=== PATIENT | male | born 1970 | race African-American/Black ===

== ENCOUNTER → 2017-12-12 | Outpatient (CLI) | payer OTHER | END | disposition home or self-care (01) | LOC: US 13:15 | DX: N43.3 Hydrocele, unspecified (principal) | CPT/HCPCS: 76870 ==

== ENCOUNTER 2018-01-09 11:29 | Day surgery (SDC) | payer OTHER ==
[~2018-01-09 11:29] MED LIST: HYDROmorphone 2 MG/ML VIAL IV; LIDOCAINE 1% PF 2 ML VIAL. ID; ONDANSETRON PF 4 MG/2 ML VIAL. IV; PROCHLORPERAZINE 10 MG/2 ML VIAL. IV; fentaNYL PF VIAL 100 MCG/2 ML VIAL IV
[2018-01-09] MEDS ORDERED: fentaNYL PF VIAL 100 MCG/2 ML VIAL ×2 (12:05→13:35)
[2018-01-09] MEDS ORDERED: MIDAZOLAM HCL/PF 2 MG/2 ML VIAL. (12:05)
[2018-01-09] MEDS ORDERED: PROPOFOL 20 ML IV (12:06)
[2018-01-09] MEDS ORDERED: ONDANSETRON PF 4 MG/2 ML VIAL. (12:06)
[2018-01-09] MEDS ORDERED: KETOROLAC 30 MG/ML INJ FOR OR. INJ (12:06)
[2018-01-09] MEDS ORDERED: SEVOFLURANE 61 TO 120 MINUTES. IH (12:06)
[2018-01-09] MEDS ORDERED: DEXAMETHASONE SOD PHOS 20 MG/5 ML VIAL. (12:06)
[2018-01-09] MEDS: IV RINGERS,LACTATED 1000ML 1,000 ML IV (12:17)
[2018-01-09] MEDS ORDERED: FAMOTIDINE 20 MG/2 ML VIAL (13:39)
[2018-01-09] MEDS: BUPIVACAINE MPF 0.25% 30 ML VIAL. (13:39)
[2018-01-09] MEDS: fentaNYL PF VIAL 100 MCG/2 ML VIAL IV ×2 (15:48→15:55)
[2018-01-09] MEDS: MORPHINE SULFATE 4 MG/ML DISP.SYRIN. IV ×3 (16:05→16:28)
[2018-01-09] MEDS: oxyCODONE/APAP 5/325 1 TAB TABLET PO (16:36)
== END 2018-01-09 17:20 | disposition home or self-care (01) ==
LOC: SURG 11:29
DX: N43.3 Hydrocele, unspecified (principal); F41.9 Anxiety disorder, unspecified; R00.2 Palpitations; Z79.899 Other long term (current) drug therapy
CPT/HCPCS: 54640; C1769; J1100; J1885; J2250; J2270; J2405; J2704; J3010; J3490; J7120; S0028

== ENCOUNTER → 2018-01-23 | Outpatient (CLI) | payer OTHER | END | disposition home or self-care (01) | LOC: RAD 12:50 | DX: N43.3 Hydrocele, unspecified (principal); R23.4 Changes in skin texture; Z98.890 Other specified postprocedural states | CPT/HCPCS: 76870 ==

== ENCOUNTER 2019-11-28 10:00 | Emergency (ER) | payer OTHER ==
[~2019-11-28] VITALS: Ht 203.2 cm; Wt 154.5 kg
[~2019-11-28 10:00] MED LIST changes: +DOCU-109 PO; +HYDR-2145 PO; +HYDR-2761 PO; -HYDROmorphone 2 MG/ML VIAL IV; +LEVO750T31 PO; -LIDOCAINE 1% PF 2 ML VIAL. ID; +LISI10TA2 PO; +METO-269 PO; +ONDA4TAB10 SL; -ONDANSETRON PF 4 MG/2 ML VIAL. IV; +OXYC-411 PO; +POLY17PO29 PO; -PROCHLORPERAZINE 10 MG/2 ML VIAL. IV; -fentaNYL PF VIAL 100 MCG/2 ML VIAL IV
--- NOTE | 2019-11-28 11:03 | PHYS DOC ---
Past Medical History Past Medical History: CHF, Hypertension Additional Past Medical Histor: Gout Past Surgical History: Other Additional Past Surgical Histo: Hernia, Internal Heart Monitor Smoking: Cigarettes (The patient is a nonsmoker.) Alcohol Use: None Drug Use: None Adult General Chief Complaint Chief Complaint: COUGH HPI HPI Patient is a 48-year-old male, with a past history of CHF, and hypertension, who presents to the emergency department for evaluation. He states he has had a cough, mostly productive of clear sputum, on and off for the past week or so. He has not had any significant discomfort, other than some soreness in his chest with coughing. He has not had any fevers, or nasal congestion. He denies any orthopnea. Although he has a history of CHF he states his current symptoms do not feel like his CHF. He denies any headache, chest pain, dizziness or lightheadedness, otalgia, or sore throat. There are no alleviating or exacerba ting factors to his symptoms otherwise. Review of Systems Review of Systems Constitutional: Denies fever or chills [] Eyes: Denies change in visual acuity, redness, or eye pain [] HENT: Denies nasal congestion or sore throat [] Respiratory: No additional information not addressed in HPI [] Cardiovascular: No additional information not addressed in HPI [] GI: Denies abdominal pain, nausea, vomiting, bloody stools or diarrhea [] : Denies dysuria or hematuria [] Musculoskeletal: Denies back pain or joint pain [] Integument: Denies rash or skin lesions [] Neurologic: Denies headache, focal weakness or sensory changes [] Endocrine: Denies polyuria or polydipsia [] All other systems were reviewed and found to be within normal limits, except as documented in this note. Allergies Allergies Allergies Coded Allergies Type Severity Reaction Last Updated Verified No Known Drug Allergies 01/09/18 No Physical Exam Physical Exam PHYSICAL EXAM: CONSTITUTIONAL: Well developed, well nourished HEAD: normocephalic, atraumatic EENT: PERRL, EOMI. Conjunctivae normal color, sclerae non-icteric; moist mucous membranes. The oropharynx is unremarkable. Airway is patent. Voice is normal. NECK: Supple, non-tender; no meningismus. LUNGS: Lungs CTA, breathing even and unlabored. Normal air movement. HEART: Regular rate and rhythm, no murmur CHEST: No deformity; non-tender ABDOMEN: The abdomen is soft, and non-tender, no masses or bruits. EXTREM: Normal ROM; no deformity, no calf tenderness. Normal pulses palpable in all extremities. There is no pedal edema. SKIN: No rash; no diaphoresis NEURO: Alert; normal speech and cognition; CN's grossly intact; strength grossly intact without focal deficit. BACK: No CVA TTP. Current Patient Data Vital Signs Vital Signs Date Time Temp Pulse Resp B/P (MAP) Pulse Ox O2 Delivery O2 Flow Rate FiO2 11/28/19 11:49 94 18 167/111 (129) 95 Room Air 11/28/19 10:37 99.0 99.0 Lab Values Laboratory Tests Test 11/28/19 11:18 11/28/19 11:24 Influenza Type A Antigen Negative (NEGATIVE) Influenza Type B Antigen Negative (NEGATIVE) White Blood Count 6.4 x10^3/uL (4.0-11.0) Red Blood Count 6.67 x10^6/uL (4.30-5.70) H Hemoglobin 15.1 g/dL (13.0-17.5) Hematocrit 47.4 % (39.0-53.0) Mean Corpuscular Volume 71 fL (79-100) L Mean Corpuscular Hemoglobin 23 pg (25-35) L Mean Corpuscular Hemoglobin Concent 32 g/dL (31-37) Red Cell Distribution Width 16.5 % (11.5-14.5) H Platelet Count 223 x10^3/uL (140-400) Neutrophils (%) (Auto) 50 % (31-73) Lymphocytes (%) (Auto) 39 % (24-48) Monocytes (%) (Auto) 8 % (0-9) Eosinophils (%) (Auto) 1 % (0-3) Basophils (%) (Auto) 1 % (0-3) Neutrophils # (Auto) 3.2 x10^3/uL (1.8-7.7) Lymphocytes # (Auto) 2.5 x10^3/uL (1.0-4.8) Monocytes # (Auto) 0.5 x10^3/uL (0.0-1.1) Eosinophils # (Auto) 0.1 x10^3/uL (0.0-0.7) Basophils # (Auto) 0.1 x10^3/uL (0.0-0.2) Platelet Estimate Pending Sodium Level 144 mmol/L (136-145) Potassium Level 3.7 mmol/L (3.5-5.1) Chloride Level 108 mmol/L (98-107) H Carbon Dioxide Level 26 mmol/L (21-32) Anion Gap 10 (6-14) Blood Urea Nitrogen 10 mg/dL (8-26) Creatinine 1.3 mg/dL (0.7-1.3) Estimated GFR (Cockcroft-Gault) 71.9 BUN/Creatinine Ratio 8 (6-20) Glucose Level 103 mg/dL (70-99) H Calcium Level 9.2 mg/dL (8.5-10.1) Total Bilirubin 0.3 mg/dL (0.2-1.0) Aspartate Amino Transferase (AST) 29 U/L (15-37) Alanine Aminotransferase (ALT) 25 U/L (16-63) Alkaline Phosphatase 138 U/L (46-116) H Troponin I Quantitative < 0.017 ng/mL (0.000-0.055) XJ-Rrn-A-Type Natriuretic Peptide 24 pg/mL (0-124) Total Protein 8.2 g/dL (6.4-8.2) Albumin 3.7 g/dL (3.4-5.0) Albumin/Globulin Ratio 0.8 (1.0-1.7) L Laboratory Tests 11/28/19 11:24 Laboratory Tests 11/28/19 11:24 EKG EKG []normal sinus rhythm at a rate of 102 beats for minute, left axis deviation, normal intervals, there are no acute ischemic ST/T changes. Radiology/Procedures Radiology/Procedures PROCEDURE: CHEST PA & LATERAL CHEST PA LATERAL History: Cough Comparison: 04/25/2016 AP view of the chest . Findings: Loop recorder device is present at the left lower thoracic level. The cardiomediastinal silhouette is normal. Pulmonary vasculature is normal. The lungs are clear. No pleural effusion or pneumothorax is seen. There is no acute bone abnormality. IMPRESSION: No acute cardiopulmonary process. [] Course & Med Decision Making Course & Med Decision Making Pertinent Labs and Imaging studies reviewed. (See chart for details) [] 12:15 PM: Patient's condition remains stable. He has not yet taken his blood pressure medication or congestive heart failure medication yet today. I discussed test results in detail, the need for close follow-up, and return precautions. Dragon Disclaimer Dragon Disclaimer This electronic medical record was generated, in whole or in part, using a voice recognition dictation system. Departure Departure Impression: Primary Impression: Cough Disposition: HOME, SELF-CARE Condition: STABLE Referrals: UNIQUE DAVIS MD (PCP) Patient Instructions: Cough, Adult, Upper Respiratory Infection, Adult RAMILA MÉNDEZ MD Nov 28, 2019 11:03
--- NOTE | 2019-11-28 11:26 | RAD ---
CHEST PA LATERAL History: Cough Comparison: 04/25/2016 AP view of the chest . Findings: Loop recorder device is present at the left lower thoracic level. The cardiomediastinal silhouette is normal. Pulmonary vasculature is normal. The lungs are clear. No pleural effusion or pneumothorax is seen. There is no acute bone abnormality. IMPRESSION: No acute cardiopulmonary process. Electronically signed by: Markell Suarez MD (11/28/2019 11:24 AM) [id number]
[2019-11-28 11:38] LABS: BASO # 0.1 x10^3/uL (0.0-0.2); BASO % 1 % (0-3); EOS # 0.1 x10^3/uL (0.0-0.7); EOS % 1 % (0-3); HEMATOCRIT 47.4 % (39.0-53.0); HEMOGLOBIN 15.1 g/dL (13.0-17.5); LYMPH # 2.5 x10^3/uL (1.0-4.8); LYMPH % 39 % (24-48); MEAN CORPUSCULAR HEMOGLOBIN 23 pg (25-35); MEAN CORPUSCULAR HGB CONC 32 g/dL (31-37); MEAN CORPUSCULAR VOLUME 71 fL (79-100); MONO # 0.5 x10^3/uL (0.0-1.1); MONO % 8 % (0-9); NEUT # 3.2 x10^3/uL (1.8-7.7); NEUT % 50 % (31-73); PLATELET COUNT 223 x10^3/uL (140-400); RED BLOOD COUNT 6.67 x10^6/uL (4.30-5.70); RED CELL DISTRIBUTION WIDTH 16.5 % (11.5-14.5); WHITE BLOOD COUNT 6.4 x10^3/uL (4.0-11.0)
[2019-11-28 11:52] LABS: CALCIUM 9.2 mg/dL (8.5-10.1); CREATININE 1.3 mg/dL (0.7-1.3); GFR 71.9; POTASSIUM 3.7 mmol/L (3.5-5.1)
[2019-11-28 11:58] LABS: ALBUMIN 3.7 g/dL (3.4-5.0); ALBUMIN/GLOBULIN RATIO 0.8 (1.0-1.7); TOTAL BILIRUBIN 0.3 mg/dL (0.2-1.0); TOTAL PROTEIN 8.2 g/dL (6.4-8.2)
[2019-11-28 11:59] LABS: INFLUENZA A PATIENT NEGATIVE (NEGATIVE); INFLUENZA B PATIENT NEGATIVE (NEGATIVE)
[2019-11-28 12:19] VITALS: BP 159/108
[2019-11-28 12:27] LABS: ANISOCYTOSIS SLIGHT; PLT ESTIMATE ADEQUATE (ADEQUATE)
--- NOTE | 2019-11-28 14:57 | EKG ---
[facility] [address] [place] [address] Test Date: 2019-11-28 Test Time: 11:17:13 Pat Name: DUY LOPEZ Department: Room: Gender: M Houseman: ALBERTO : 1970 Requested By: RAMILA MÉNDEZ Order Number: [id number] Reading MD: Measurements Intervals [place] Rate: 102 P: 24 UT: 118 QRS: -27 QRSD: 74 T: 38 QT: 366 QTc: 482 Interpretive Statements SINUS TACHYCARDIA LEFTWARD AXIS OTHERWISE NORMAL ECG RI6.01 No previous ECG available for comparison
== END 2019-11-28 12:28 | disposition home or self-care (01) ==
LOC: ER 10:00
DX: R05 Cough (principal); I11.0 Hypertensive heart disease with heart failure; I50.9 Heart failure, unspecified; F17.210 Nicotine dependence, cigarettes, uncomplicated; Z98.890 Other specified postprocedural states
CPT/HCPCS: 36415; 71046; 80053; 83880; 84484; 85025; 87804; 93005; 99285

== ENCOUNTER 2020-07-29 13:31 | Emergency (ER) | payer OTHER ==
[~2020-07-29] VITALS: Ht 203.2 cm; Wt 159.0 kg
[~2020-07-29 13:31] MED LIST changes: -OXYC-411 PO; +OXYC1TAB20 PO
[2020-07-29 14:43] LABS: BASO % 1 % (0-3); EOS # 0.1 x10^3/uL (0.0-0.7); EOS % 2 % (0-3); HEMATOCRIT 42.9 % (39.0-53.0); HEMOGLOBIN 13.8 g/dL (13.0-17.5); LYMPH # 1.8 x10^3/uL (1.0-4.8); LYMPH % 26 % (24-48); MEAN CORPUSCULAR HEMOGLOBIN 23 pg (25-35); MEAN CORPUSCULAR HGB CONC 32 g/dL (31-37); MEAN CORPUSCULAR VOLUME 71 fL (79-100); MONO # 0.7 x10^3/uL (0.0-1.1); MONO % 11 % (0-9); NEUT # 4.3 x10^3/uL (1.8-7.7); NEUT % 61 % (31-73); PLATELET COUNT 244 x10^3/uL (140-400); RED BLOOD COUNT 6.06 x10^6/uL (4.30-5.70); RED CELL DISTRIBUTION WIDTH 17.1 % (11.5-14.5)
[2020-07-29 14:52] LABS: PROTHROMBIN TIME PATIENT 12.4 SEC (11.7-14.0)
[2020-07-29 14:55] LABS: CALCIUM 8.7 mg/dL (8.5-10.1); CREATININE 1.1 mg/dL (0.7-1.3); GFR 86.8; POTASSIUM 4.2 mmol/L (3.5-5.1)
[2020-07-29 15:03] LABS: ALBUMIN 3.3 g/dL (3.4-5.0); ALBUMIN/GLOBULIN RATIO 0.8 (1.0-1.7); MAGNESIUM 2.1 mg/dL (1.8-2.4); TOTAL BILIRUBIN 0.3 mg/dL (0.2-1.0); TOTAL PROTEIN 7.3 g/dL (6.4-8.2)
--- NOTE | 2020-07-29 15:21 | RAD ---
CT HEAD WO CONTRAST History: Reason: DIZZINESS / Spl. Instructions: / History: Comparison: May 14, 2015 Technique: Noncontrast CT imaging was performed of the head. Exposure: One or more of the following individualized dose reduction techniques were utilized for this examination: 1. Automated exposure control 2. Adjustment of the mA and/or kV according to patient size 3. Use of iterative reconstruction technique. Findings: No intracranial hemorrhage. No mass effect. No hydrocephalus. Small chronic right thalamic lacunar infarct (series 2 image 14), unchanged. Imaged orbits are unremarkable. Imaged paranasal sinuses and mastoid air cells are clear. No acute calvarial fracture. Impression: 1. No acute intracranial abnormality. 2. Small chronic right thalamic lacunar infarct, unchanged. Electronically signed by: Manuel Martinez DO (07/29/2020 3:18 PM) [id number]
[2020-07-29 16:31] LABS: ANISOCYTOSIS PRESENT; HYPOCHROMIA PRESENT
--- NOTE | 2020-07-29 17:19 | PHYS DOC ---
Past Medical History Past Medical History: CHF, Hypertension Additional Past Medical Histor: Gout Past Surgical History: Other Additional Past Surgical Histo: Hernia, Internal Heart Monitor Smoking Status: Never Smoker Alcohol Use: None Drug Use: None General Adult EDM: Chief Complaint: DIZZY/LIGHT HEADED HPI: HPI: Patient is a 49 year old male who presented to ER today for evaluation of generalized weakness with dizziness for a week. Patient was off for several days, came back to work today, felt exhausted so he came here for evaluation. Patient denies any cough, no fever, no chest pain, no trouble breathing. Patient denies any headache, no sore throat, no neck pain. Patient denies slurred speech, no headache. Patient denies being exposed to anybody who tested for possible COVID-19. Review of Systems: Review of Systems: Constitutional: Denies fever or chills. [] Eyes: Denies change in visual acuity. [] HENT: Denies nasal congestion or sore throat. [] Respiratory: Denies cough or shortness of breath. [] Cardiovascular: Denies chest pain or edema. [] GI: Denies abdominal pain, nausea, vomiting, bloody stools or diarrhea. [] : Denies dysuria. [] Musculoskeletal: Denies back pain or joint pain. [] Integument: Denies rash. [] Neurologic: Denies headache, focal weakness or sensory changes. Positive for generalized weakness....and dizziness Endocrine: Denies polyuria or polydipsia. [] Lymphatic: Denies swollen glands. [] Psychiatric: Denies depression or anxiety. [] Heart Score: Risk Factors: Risk Factors: DM, Current or recent (<one month) smoker, HTN, HLP, family history of CAD, obesity. Risk Scores: Score 0 - 3: 2.5% MACE over next 6 weeks - Discharge Home Score 4 - 6: 20.3% MACE over next 6 weeks - Admit for Clinical Observation Score 7 - 10: 72.7% MACE over next 6 weeks - Early Invasive Strategies Allergies: Allergies: Allergies Coded Allergies Type Severity Reaction Last Updated Verified No Known Drug Allergies 01/09/18 No Physical Exam: PE: Constitutional: Well developed, well nourished, no acute distress, non-toxic appearance. [] HENT: Normocephalic, atraumatic, bilateral external ears normal, oropharynx moist, no oral exudates, nose normal. [] Eyes: PERRLA, EOMI, conjunctiva normal, no discharge. [] Neck: Normal range of motion, no tenderness, supple, no stridor. [] Cardiovascular:Heart rate regular rhythm, no murmur [] Lungs & Thorax: Bilateral breath sounds clear to auscultation [] Abdomen: Bowel sounds normal, soft, no tenderness, no masses, no pulsatile masses. [] Skin: Warm, dry, no erythema, no rash. [] Back: No tenderness, no CVA tenderness. [] Extremities: No tenderness, no cyanosis, no clubbing, ROM intact, no edema. [] Neurologic: Alert and oriented X 3, normal motor function, normal sensory function, no focal deficits noted. [] Psychologic: Affect normal, judgement normal, mood normal. [] Current Patient Data: Labs: Laboratory Tests Test 07/29/20 14:32 White Blood Count 7.0 x10^3/uL (4.0-11.0) Red Blood Count 6.06 x10^6/uL (4.30-5.70) H Hemoglobin 13.8 g/dL (13.0-17.5) Hematocrit 42.9 % (39.0-53.0) Mean Corpuscular Volume 71 fL (79-100) L Mean Corpuscular Hemoglobin 23 pg (25-35) L Mean Corpuscular Hemoglobin Concent 32 g/dL (31-37) Red Cell Distribution Width 17.1 % (11.5-14.5) H Platelet Count 244 x10^3/uL (140-400) Neutrophils (%) (Auto) 61 % (31-73) Lymphocytes (%) (Auto) 26 % (24-48) Monocytes (%) (Auto) 11 % (0-9) H Eosinophils (%) (Auto) 2 % (0-3) Basophils (%) (Auto) 1 % (0-3) Neutrophils # (Auto) 4.3 x10^3/uL (1.8-7.7) Lymphocytes # (Auto) 1.8 x10^3/uL (1.0-4.8) Monocytes # (Auto) 0.7 x10^3/uL (0.0-1.1) Eosinophils # (Auto) 0.1 x10^3/uL (0.0-0.7) Basophils # (Auto) 0.0 x10^3/uL (0.0-0.2) Platelet Estimate Pending Hypochromasia Present Anisocytosis Present Prothrombin Time 12.4 SEC (11.7-14.0) Prothrombin Time INR 1.0 (0.8-1.1) Activated Partial Thromboplast Time 28 SEC (24-38) Sodium Level 142 mmol/L (136-145) Potassium Level 4.2 mmol/L (3.5-5.1) Chloride Level 105 mmol/L (98-107) Carbon Dioxide Level 31 mmol/L (21-32) Anion Gap 6 (6-14) Blood Urea Nitrogen 8 mg/dL (8-26) Creatinine 1.1 mg/dL (0.7-1.3) Estimated GFR (Cockcroft-Gault) 86.8 BUN/Creatinine Ratio 7 (6-20) Glucose Level 120 mg/dL (70-99) H Calcium Level 8.7 mg/dL (8.5-10.1) Magnesium Level 2.1 mg/dL (1.8-2.4) Total Bilirubin 0.3 mg/dL (0.2-1.0) Aspartate Amino Transferase (AST) 20 U/L (15-37) Alanine Aminotransferase (ALT) 23 U/L (16-63) Alkaline Phosphatase 120 U/L (46-116) H Troponin I Quantitative < 0.017 ng/mL (0.000-0.055) CD-Cin-R-Type Natriuretic Peptide 81 pg/mL (0-124) Total Protein 7.3 g/dL (6.4-8.2) Albumin 3.3 g/dL (3.4-5.0) L Albumin/Globulin Ratio 0.8 (1.0-1.7) L Laboratory Tests 07/29/20 14:32 Laboratory Tests 07/29/20 14:32 Vital Signs: Vital Signs Date Time Temp Pulse Resp B/P (MAP) Pulse Ox O2 Delivery O2 Flow Rate FiO2 07/29/20 16:33 74 97 07/29/20 13:31 98.7 17 171/112 (131) Room Air 98.7 EKG: EKG: EKG was done at 1403, heart rate of 77 beats per minute, sinus rhythm, no ST segment elevation. Radiology/Procedures: Radiology/Procedures: [][facility] [address] [place], [place] [id number] IMAGING REPORT Signed PATIENT: DUY LOPEZ ACCOUNT: [id number] : 1970 LOCATION: ER AGE: 49 SEX: M EXAM STATUS: REG ER ORD. PHYSICIAN: SUSANNAH THRASHER DO REASON: DIZZINESS PROCEDURE: CT HEAD WO CONTRAST CT HEAD WO CONTRAST History: Reason: DIZZINESS / Spl. Instructions: / History: Comparison: May 14, 2015 Technique: Noncontrast CT imaging was performed of the head. Exposure: One or more of the following individualized dose reduction techniques were utilized for this examination: 1. Automated exposure control 2. Adjustment of the mA and/or kV according to patient size 3. Use of iterative reconstruction technique. Findings: No intracranial hemorrhage. No mass effect. No hydrocephalus. Small chronic right thalamic lacunar infarct (series 2 image 14), unchanged. Imaged orbits are unremarkable. Imaged paranasal sinuses and mastoid air cells are clear. No acute calvarial fracture. Impression: 1. No acute intracranial abnormality. 2. Small chronic right thalamic lacunar infarct, unchanged. Electronically signed by: Manuel Martinez DO (07/29/2020 3:18 PM) [id number] DICTATED and SIGNED BY: MANUEL MARTINEZ DO DATE: 07/29/20 1518 Course & Med Decision Making: Course & Med Decision Making Pertinent Labs and Imaging studies reviewed. (See chart for details) Patient is a 49-year male who presented to ER with vague symptoms of generalized weakness and dizziness for a week. Her blood pressure was elevated, most likely affected him. CT scan his head come back normal, EKG was normal as well. His lab work did not show any significant abnormality. Patient will be discharged home, he will need to follow-up with family doctor to reevaluate his blood pressure. Patient is amenable to plan of care. Dragon Disclaimer: Dragon Disclaimer: This electronic medical record was generated, in whole or in part, using a voice recognition dictation system. Departure Departure Impression: Primary Impression: Dizziness Additional Impression: HTN (hypertension) Disposition: 01 HOME, SELF-CARE Condition: STABLE Referrals: UNIQUE DAVIS MD (PCP) follow up with your doctor in 2 days for reevaluation Patient Instructions: Dizziness, Hypertension Additional Instructions: Thank you for visiting our Emergency Department. We appreciate you trusting us with your care. If any additional problems come up don't hesitate to return to visit us. Please follow up with your primary care provider so they can plan additional care if needed and know about the problem that you had. If symptoms worsen come back to the Emergency Department. Any concerning symptoms that start such as chest pain, shortness of air, weakness or numbness on one side of the body, running high fevers or any other concerning symptoms return to the ER. SUSANNAH THRASHER DO Jul 29, 2020 17:19
[2020-07-29 18:03] VITALS: BP 164/115
[2020-07-29 19:49] LABS: PLT ESTIMATE ADEQUATE (ADEQUATE)
--- NOTE | 2020-07-30 15:20 | EKG ---
[facility] [address] [place] [address] Test Date: 2020-07-29 Test Time: 14:03:33 Pat Name: DUY LOPEZ Department: Room: Gender: M Process Equipment Operator: : 1970 Requested By: SUSANNAH THRASHER Order Number: [id number] Reading MD: Measurements Intervals [place] Rate: 77 P: 24 FL: 192 QRS: -2 QRSD: 76 T: 22 QT: 316 QTc: 359 Interpretive Statements SINUS RHYTHM LEFTWARD AXIS OTHERWISE NORMAL ECG RI6.02 No previous ECG available for comparison
== END 2020-07-29 18:35 | disposition home or self-care (01) ==
LOC: ER 13:31
DX: R42 Dizziness and giddiness (principal); I11.0 Hypertensive heart disease with heart failure; I50.9 Heart failure, unspecified; M10.9 Gout, unspecified
CPT/HCPCS: 36415; 70450; 80053; 83735; 83880; 84484; 85025; 85610; 85730; 93005; 99285

== ENCOUNTER 2021-04-12 09:27 | Emergency (ER) | payer OTHER ==
[~2021-04-12] VITALS: Ht 203.2 cm; Wt 159.0 kg
[~2021-04-12 09:27] MED LIST changes: +LISI10TA16 PO; -LISI10TA2 PO
[2021-04-12 09:30] VITALS: BP 164/112
--- NOTE | 2021-04-12 10:36 | RAD ---
Examination: 3 views of the left hand HISTORY: History of jamming of the fourth finger, bruising COMPARISON: None available Findings/ impression: The alignment of the metacarpophalangeal interphalangeal joints grossly appears unremarkable. There i s questionable lucency identified in the volar base of the middle phalanx of the fourth digit seen on the oblique view could be a fracture however this is not well-visualized on the lateral view. Recom mend 3 views of the fourth digit without the other digits on the image for better evaluation. Electronically signed by: Bucky Mcnulty MD (04/12/2021 10:34 AM) [id number]
--- NOTE | 2021-04-12 10:44 | PHYS DOC ---
Past Medical History Past Medical History: CHF, Hypertension Additional Past Medical Histor: Gout Past Surgical History: Other Additional Past Surgical Histo: Hernia, Internal Heart Monitor Smoking Status: Never Smoker Alcohol Use: None Drug Use: None General Adult EDM: Chief Complaint: FINGER INJURY HPI: HPI: Patient is a 50 year old male who presents with 2 days ago was playing football with his son when the football hit his left fourth finger jamming it. Since then has been swollen and bruised and he states the pain is gotten better but he cannot unbend it straight. Patient rates his pain at 3 out of 10 states it is aching. He states that there is slight numbness around the PIP. Patient has a history of hypertension, CHF, internal heart monitor, gout. Review of Systems: Review of Systems: Constitutional: Denies fever or chills. [] Eyes: Denies change in visual acuity. [] HENT: Denies nasal congestion or sore throat. [] Respiratory: Denies cough or shortness of breath. [] Cardiovascular: Denies chest pain or + left fourth finger edema. [] GI: Denies abdominal pain, nausea, vomiting, bloody stools or diarrhea. [] : Denies dysuria. [] Musculoskeletal: Denies back pain. + Left fourth finger joint pain. [] Integument: Denies rash. + Left fourth finger bruising [] Neurologic: Denies headache, focal weakness or sensory changes. + Left fourth finger tingling [] Endocrine: Denies polyuria or polydipsia. [] Lymphatic: Denies swollen glands. [] Psychiatric: Denies depression or anxiety. [] Heart Score: C/O Chest Pain: No Risk Factors: Risk Factors: DM, Current or recent (<one month) smoker, HTN, HLP, family history of CAD, obesity. Risk Scores: Score 0 - 3: 2.5% MACE over next 6 weeks - Discharge Home Score 4 - 6: 20.3% MACE over next 6 weeks - Admit for Clinical Observation Score 7 - 10: 72.7% MACE over next 6 weeks - Early Invasive Strategies Allergies: Allergies: Allergies Coded Allergies Type Severity Reaction Last Updated Verified No Known Drug Allergies 04/12/21 No Physical Exam: PE: Constitutional: Well developed, well nourished, no acute distress, non-toxic appearance. [] HENT: Normocephalic, atraumatic, bilateral external ears normal, oropharynx moist, no oral exudates, nose normal. [] Eyes: PERRLA, EOMI, conjunctiva normal, no discharge. [] Neck: Normal range of motion, no tenderness, supple, no stridor. [] Cardiovascular:Heart rate regular rhythm, no murmur [] Lungs & Thorax: Bilateral breath sounds clear to auscultation [] Abdomen: Bowel sounds normal, soft, no tenderness, no masses, no pulsatile masses. [] Skin: Warm, dry, no erythema, no rash. [] Back: No tenderness, no CVA tenderness. [] Extremities: Left fourth finger tenderness, no cyanosis, no clubbing, Left 4th finger ROM not intact at pip, 2+ edema. [] Neurologic: Alert and oriented X 3, normal motor function, normal sensory function, no focal deficits noted. [] Psychologic: Affect normal, judgement normal, mood normal. [] Current Patient Data: Vital Signs: Vital Signs Date Time Temp Pulse Resp B/P (MAP) Pulse Ox O2 Delivery O2 Flow Rate FiO2 04/12/21 09:30 98.8 83 16 164/112 (129) 98 Room Air 98.8 EKG: EKG: [] Radiology/Procedures: Radiology/Procedures: [] Impression: [facility] [address] [place] [address] IMAGING REPORT Signed PATIENT: DUY LOPEZ ACCOUNT: [id number] : 1970 LOCATION: ER AGE: 50 SEX: M EXAM STATUS: REG ER ORD. PHYSICIAN: BERENICE PASTRANA APRN REASON: jammed 4th finger, bruising PROCEDURE: HAND LEFT 3V Examination: 3 views of the left hand HISTORY: History of jamming of the fourth finger, bruising COMPARISON: None available Findings/ impression: The alignment of the metacarpophalangeal interphalangeal joints grossly appears unremarkable. There is questionable lucency identified in the volar base of the middle phalanx of the fourth digit seen on the oblique view could be a fracture however this is not well-visualized on the lateral view. Recommend 3 views of the fourth digit without the other digits on the image for better evaluation. Electronically signed by: Bucky Mcnulty MD (04/12/2021 10:34 AM) [id number] DICTATED and SIGNED BY: BUCKY MCNULTY MD DATE: 04/12/21 [id number] [facility] [address] [place] [address] IMAGING REPORT Signed PATIENT: DUY LOPEZ ACCOUNT: [id number] : 1970 LOCATION: ER AGE: 50 SEX: M EXAM STATUS: REG ER ORD. PHYSICIAN: BERENICE PASTRANA APRN REASON: 4th digit abnormality on hand xray PROCEDURE: FINGER(S) LEFT EXAM: Proximal phalanx DATE: 04/12/2021 10:44 AM INDICATION: Reason: 4th digit abnormality on hand xray / Spl. Instructions: / History: . COMPARISON: No Prior FINDINGS/ IMPRESSION: Intra-articular avulsion fracture at the base of the middle phalanx left ring finger is nondisplaced. Moderate associated soft tissue swelling is seen. Electronically signed by: Ronald Damon MD (04/12/2021 11:03 AM) [facility] DICTATED and SIGNED BY: RONALD DAMON MD DATE: 04/12/21 [id number] Course & Med Decision Making: Course & Med Decision Making Pertinent Labs and Imaging studies reviewed. (See chart for details) See HPI. Skin pink warm and dry other than the bruising to the left fourth finger. 2+ swelling. Patient cannot unbend the anger at the PIP joint. Radial pulse strong and present. Cap refill less than 2 seconds. Some numbness at the PIP joint area. Placed in a finger AlumaFoam splint. Follow-up with his primary care or [facility]. I did speak to Dr. Jacobson who states that he is not comfortable with the follow-up care and he thinks the patient should at least see a person that can do hand surgery. [] Dragon Disclaimer: Dragon Disclaimer: This electronic medical record was generated, in whole or in part, using a voice recognition dictation system. Departure Departure Impression: Primary Impression: Finger fracture, left Qualified Codes: S62.655A - Nondisplaced fracture of middle phalanx of left ring finger, initial encounter for closed fracture Disposition: HOME / SELF CARE / HOMELESS Condition: STABLE Referrals: UNIQUE DAVIS MD (PCP) Patient Instructions: Finger Fracture Additional Instructions: Follow-up with your primary care provider or [facility] that will do hand surgery. Use ice and elevation help with swelling and pain. Take ibuprofen or Tylenol. BERENICE PASTRANA SLEEVE SETTER Apr 12, 2021 10:44
--- NOTE | 2021-04-12 11:05 | RAD ---
EXAM: Proximal phalanx DATE: 04/12/2021 10:44 AM INDICATION: Reason: 4th digit abnormality on hand xray / Spl. Instructions: / History: . COMPARISON: No Prior FINDINGS/ IMPRESSION: Intra-articular avulsion fracture at the base of the middle phalanx left ring finger is nondisplaced. Moderate associated soft tissue swelling is seen. Electronically signed by: Ronald Caldwell MD (04/12/2021 11:03 AM) [email or web address]
== END 2021-04-12 11:50 | disposition home or self-care (01) ==
LOC: ER 09:27
DX: S62.655A Nondisplaced fracture of middle phalanx of left ring finger, initial encounter for closed fracture (principal); I11.0 Hypertensive heart disease with heart failure; I50.9 Heart failure, unspecified; M10.9 Gout, unspecified; W23.0XXA Caught, crushed, jammed, or pinched between moving objects, initial encounter; Y93.61 Activity, american tackle football; Y92.89 Other specified places as the place of occurrence of the external cause; Y99.8 Other external cause status
CPT/HCPCS: 29130; 73130; 73140; 99284

== ENCOUNTER → 2021-06-11 | Outpatient (CLI) | payer OTHER ==
--- NOTE | 2021-06-11 19:17 | KCIC ---
EXAM: PA, oblique and lateral views of the left ring finger DATE: 06/11/2021 9:42 AM INDICATION: Reason: Intra-articular avulsion fracture middle phalanx Lt. 4th digit follow up / Spl. I nstructions: / History: . COMPARISON: 04/12/2021 FINDINGS/ IMPRESSION: Intra-articular avulsion fracture palmar base PIP joint left ring finger is stable alignment. Equivoc al signs for bony bridging. Moderate associated soft tissue swelling. Electronically signed by: Ronald Caldwell MD (06/11/2021 7:15 PM) [email or web address]
== END ==
LOC: KCIC 09:38
PROVIDERS: ATTEND Internal Medicine
DX: S62.625A Displaced fracture of middle phalanx of left ring finger, initial encounter for closed fracture (principal); X58.XXXA Exposure to other specified factors, initial encounter; Y93.89 Activity, other specified; Y92.89 Other specified places as the place of occurrence of the external cause; Y99.8 Other external cause status
CPT/HCPCS: 73140